=== PATIENT | male | born 1970 | race Caucasian/White ===

== ENCOUNTER 2022-03-19 19:12 | Emergency (ER) | payer BC, SELFPAY ==
[2022-03-19 19:22] VITALS: BP 109/70; PULSE 73; RESP 18; TEMP 36.8; O2SAT 98
--- NOTE | 2022-03-19 21:09 | ED.DENTAL ---
HPI - Dental/Oral General Chief complaint: Dental/Oral Stated complaint: Mouth Sore Time Seen by Provider: 03/19/22 21:00 Source: patient, RN notes reviewed and old records reviewed Mode of arrival: ambulatory Limitations: no limitations History of Present Illness HPI Narrative: 51 year old male presents to [facility] with complaint of oral mouth lesions for the past 5 days with white blistery types of lesions and some white ring lesions on tongue and back of mouth reports first occurrence. Patient also reports that he has a few small open type of blisters noted on testicles which he plans to discuss with his PCP. Patient is HIV positive and on oral medication regime. Patient reports that he is not sexually active reports no concern for STD exposure at this time. Patient denies any testicular swelling or pain. Patient reports that he has been using oral mouthwash rinses. Onset (ago): day(s) (5) Duration: constant Severity scale (1-10): 8 (burning and sharp) Related Data Home Medications Medication Instructions Recorded Confirmed alprazolam 0.25 mg PO DAILY 03/19/22 03/20/22 alprazolam 0.5 mg PO DAILY 03/19/22 03/20/22 atomoxetine 80 mg PO DAILY 03/19/22 03/20/22 atorvastatin See Rx Instructions .ROUTE .COMPLEX 03/19/22 03/20/22 azithromycin See Rx Instructions .ROUTE .COMPLEX 03/19/22 03/20/22 buspirone 10 mg PO DAILY 03/19/22 03/20/22 cholecalciferol (vitamin D3) 125 mcg PO DAILY 03/19/22 03/20/22 dolutegravir [Tivicay] 50 mg PO DAILY 03/19/22 03/20/22 emtricitabine-tenofovir alafen 1 tablet PO DAILY 03/19/22 03/20/22 [Descovy] escitalopram oxalate 20 mg PO DAILY 03/19/22 03/20/22 sulfamethoxazole-trimethoprim See Rx Instructions .ROUTE .COMPLEX 03/19/22 03/20/22 tramadol See Rx Instructions .ROUTE .COMPLEX 03/19/22 03/20/22 Allergies Allergy/AdvReac Type Severity Reaction Status Date / Time No Known Allergies Allergy Verified 03/19/22 20:05 Review of Systems Review of Systems: CONSTITUTIONAL: Denies fever, chills, or sweats. EYES: Denies visual changes, redness, or discharge. ENT: Denies rhinorrhea, congestion, sore throat, or otalgia.Positive for oral blisters, circular whitish lesions on tongue ad back of mouth CARDIOVASCULAR: Denies chest pain, palpitations, or edema. RESPIRATORY: Denies cough or dyspnea. GASTROINTESTINAL: Denies abdominal pain, nausea, vomiting, or diarrhea. GENITOURINARY: Denies dysuria or hematuria.few open blisters to testicles SKIN: Denies rash or itching. MUSCULOSKELETAL: Denies back pain, joint pain, or myalgia. NEUROLOGIC: Denies headache, numbness, or weakness. PSYCHIATRIC:Positive for history of anxiety or depression. All systems reviewed & are unremarkable except as noted in HPI and below PMFSH Past Medical History Medical History (Updated 03/22/22 @ 09:18 by Marissa Srinivasan NP) Anxiety associated with depression Elevated cholesterol HIV disease Jaw pain Surgical History Surgical History (Updated 03/22/22 @ 08:54 by Marissa Srinivasan NP) History of mandibular surgery jaw fracture repair Social History Social History (Updated 03/22/22 @ 08:57 by Marissa Srinivasan NP) Smoking status: Current every day smoker Alcohol intake: unknown Substance use: unknown Gender identity (if verbalized by the patient): Male Comments At time of signature, agree with nursing past medical, surgical, social and family history. There is no relevant family history pertinent to the presenting complaint Exam Narrative: GENERAL: Well-appearing, well-nourished, and in no acute distress. HEAD: Normocephalic, atraumatic. EYES: PERRLA and EOMI. ENT: Nares clear, no rhinorrhea or epistaxis. Mucous membranes moist.TM's normal with good light reflex, throat pink with no tonsil swelling. blistery type of lesions and white circular lesions noted on tongue and also to back of mouth, no difficulty with swallowing NECK: Supple.no lymphadenopathy CHEST: Clear to auscultation. No respiratory dis
== END 2022-03-19 21:20 | disposition home or self-care (01) ==
PROVIDERS: Emergency Provider Registered Nurse
DX: K12.0 Recurrent oral aphthae (principal); B00.89 Other herpesviral infection; F17.200 Nicotine dependence, unspecified, uncomplicated
CPT/HCPCS: 99213; G0463